=== PATIENT | female | born 1975 | race Two or more races ===

== ENCOUNTER 2017-06-12 17:53 | Emergency (ER) | payer BC ==
[~2017-06-12] VITALS: Ht 165.1 cm; Wt 77.1 kg
[2017-06-12 19:10] LABS: Albumin 3.6 g/dL (3.4-5.0); Alkaline Phosphatase 105 U/L (45-117); Anion Gap 11 (5-15); Aspartate Aminotransferase 15 U/L (15-37); Bilirubin, Total 0.5 mg/dL (0.2-1.0); Blood Urea Nitrogen 16 mg/dL (7-18); Calcium 9.1 mg/dL (8.5-10.1); Carbon Dioxide 21 mmol/L (21-32); Chloride 106 mmol/L (98-107); GFR African American 89 mL/min; GFR Non-African American 74 mL/min; Glucose 155 mg/dL (74-106); Potassium 3.3 mmol/L (3.5-5.1); Sodium 138 mmol/L (136-145); Total Protein 8.3 g/dL (6.4-8.2)
[2017-06-12 19:20] LABS: Basophils # (auto) 0 uL; Basophils % (auto) 0.4 % (0.0-2.0); Eosinophils # (auto) 0.1 uL; Eosinophils % (auto) 0.6 % (0.0-7.0); Hematocrit 40.8 % (36.0-46.0); Hemoglobin 13.4 g/dL (12.2-16.2); Lymphocytes # (auto) 2.1 uL; Lymphocytes % (auto) 22.8 % (10.0-50.0); Mean Corpuscular Hemoglobin 27.4 pg (28.0-32.0); Mean Corpuscular Hgb Conc. 32.8 g/dL (32.0-36.0); Mean Corpuscular Volume 83.7 fL (80.0-100.0); Monocytes # (auto) 0.5 uL; Monocytes % (auto) 5.6 % (0.0-12.0); Neutrophils # (auto) 6.7 uL; Neutrophils % (auto) 70.6 % (37.0-80.0); Platelet Count (auto) 268 10^3/uL (140-450); Red Cell Distribution Width 15.3 % (11.8-14.3); White Blood Cell 9.4 10^3/uL (4.4-10.8)
[2017-06-13 00:17] VITALS: BP 127/84
[2017-06-13] MEDS ORDERED: ASPirin 81 mg TAB PO ONE (01:00)
== END 2017-06-13 01:15 | disposition home or self-care (01) ==
LOC: ER 17:53
DX: R07.89 Other chest pain (principal); R00.2 Palpitations
CPT/HCPCS: 36415; 80053; 84484; 85025; 93005